=== PATIENT | male | born 1980 | race Caucasian/White ===

== ENCOUNTER 2021-03-01 20:33 | Emergency (ER) | payer SELFPAY ==
[~2021-03-01 20:33] MED LIST: CYCLOBENZAPRINE10 MG PO; IBU800 MG PO
[2021-03-01] MEDS ORDERED: ERYTHROMYCIN O3.5 GM OD (23:06)
== END 2021-03-01 23:10 | disposition home or self-care (01) ==
LOC: ER1 20:33
DX: S05.01XA Injury of conjunctiva and corneal abrasion without foreign body, right eye, initial encounter (principal); W22.8XXA Striking against or struck by other objects, initial encounter
CPT/HCPCS: 99283